=== PATIENT | male | born 1970 | race Caucasian/White ===

== ENCOUNTER → 2016-06-17 | Outpatient (CLI) | payer OTHER ==
--- NOTE | 2016-06-18 02:31 | REP ---
Clinical: Right-sided chest and rib pain. Technique: PA and lateral. Comparison: 05/02/2015. Findings: Mediastinum and cardiac silhouette are normal. Lung lopez demonstrate chronic interstitial changes. No acute consolidation, effusion, or pneumothorax. Osseous structures appear intact. Impression: Chronic interstitial changes. No obvious acute process. Signed by Chuy Victoria MD 06/18/2016 02:22 A
--- NOTE | 2016-06-18 02:34 | REP ---
Clinical: Right-sided rib pain. Technique: Multiple views of the right hemithorax. Findings: A very subtle nondisplaced fracture along the anterolateral margin of the right ninth rib cannot be excluded. No other fracture or pathology noted. Impression: Cannot exclude very slight nondisplaced fracture along the anterolateral margin of the right ninth rib. Signed by Chuy Victoria MD 06/18/2016 02:25 A
== END ==
LOC: M LRY 16:50
PROVIDERS: ATTEND Family Medicine
DX: R07.81 Pleurodynia (principal); J98.4 Other disorders of lung; R93.7 Abnormal findings on diagnostic imaging of other parts of musculoskeletal system

== ENCOUNTER → 2016-09-14 | Outpatient (CLI) | payer OTHER, SELFPAY ==
--- NOTE | 2016-09-14 18:02 | REP ---
PA CHEST WITH RIGHT RIBS: 09/14/2016. Clinical history: Injured right chest wall unilateral aspect of the ribs mid chest. Comparison 06/17/2016, PA chest and rib series. Findings: PA chest: Lungs are better inflated than the previous study. There is no effusion, infiltrate, atelectasis, lateral pleural thickening, apical scarring or pneumothorax. No consolidation or mass. The heart, mediastinal and hilar contours are normal. Airway intact. The aorta unremarkable. Right ribs: Four views are provided for detail of the right ribs. There is a right posterolateral zone of periosteal reaction suggesting healing rib fracture. I do not see displacement or the rib fracture line itself or other rib findings, areas of pleural thickening, pleural effusion or pneumothorax. Clavicle, scapula and shoulder joints grossly intact. Impression: 1. No visible acute displaced fracture with some healing and remodeling of a lateral right ninth rib. Lung lopez are well inflated and clear. No pneumothorax. Nothing acute. Signed by Rashad Chun MD 09/15/2016 05:11 P
== END ==
LOC: M LRY 16:41
PROVIDERS: ATTEND Nurse Practitioner Family
DX: R07.81 Pleurodynia (principal)

== ENCOUNTER → 2017-11-01 | Outpatient (REF) | payer OTHER | LOC: M SFHCLERA 16:22 | DX: E66.3 Overweight (principal); F32.9 Major depressive disorder, single episode, unspecified ==

== ENCOUNTER → 2018-01-12 | Outpatient (REF) | payer OTHER ==
[2018-01-12 17:00] LABS: ANION GAP 5 MEQ/L (8-16); BLOOD UREA NITROGEN 15 MG/DL (7-18); CARBON DIOXIDE LEVEL 28 MEQ/L (21-32); CHLORIDE LEVEL 103 MEQ/L (98-107); CHOLESTEROL LEVEL 227 MG/DL (<200); CHOLESTEROL RISK RATIO 6.878 (<5); GLOMERULAR FILTRATION RATE > 60.0 (>60); GLUCOSE, FASTING 128 MG/DL (70-100); HDL CHOLESTEROL 33 MG/DL (>40); NON-HDL-C 194 MG/DL; POTASSIUM SERUM 4.7 MEQ/L (3.5-5.1); SODIUM LEVEL 136 MEQ/L (136-145); TRIGLYCERIDES LEVEL 498 MG/DL (<150)
[2018-01-12 17:01] LABS: ESTIMATED AVERAGE GLUCOSE 126 MG/DL (60-110)
== END ==
LOC: M SFHCLERA 13:57
DX: E66.3 Overweight (principal); F32.9 Major depressive disorder, single episode, unspecified
CPT/HCPCS: 83036

== ENCOUNTER → 2018-01-14 | Outpatient (CLI) | payer OTHER | LOC: M LRY 11:46 | DX: M25.572 Pain in left ankle and joints of left foot (principal) | CPT/HCPCS: 73610 ==

== ENCOUNTER → 2018-09-22 | Outpatient (REF) | payer OTHER, SELFPAY ==
[2018-09-22 16:55] LABS: ALBUMIN 4.6 GM/DL (3.2-5.2); ALT/SGPT 40 U/L (12-78); BILIRUBIN,TOTAL 0.4 MG/DL (0.2-1.0); BLOOD UREA NITROGEN 15 MG/DL (7-18); CALCIUM LEVEL 10.1 MG/DL (8.5-10.1); CARBON DIOXIDE LEVEL 31 MEQ/L (21-32); CHLORIDE LEVEL 103 MEQ/L (98-107); CHOLESTEROL LEVEL 272 MG/DL (<200); CHOLESTEROL RISK RATIO 5.666 (<5); CREATININE FOR GFR 1.06 MG/DL (0.70-1.30); GLOMERULAR FILTRATION RATE > 60.0 (>60); GLUCOSE, FASTING 86 MG/DL (70-100); HDL CHOLESTEROL 48 MG/DL (>40); LDL CHOLESTEROL 182 MG/DL (<100); NON-HDL-C 224 MG/DL; POTASSIUM SERUM 4.9 MEQ/L (3.5-5.1); SODIUM LEVEL 139 MEQ/L (136-145); THYROID STIMULATING HORMONE 0.554 uIU/ML (0.358-3.740); TOTAL PROTEIN 8.3 GM/DL (6.4-8.2); TRIGLYCERIDES LEVEL 211 MG/DL (<150)
[2018-09-22 20:01] LABS: HEMOGLOBIN A1c 6.2 %
== END ==
LOC: M SFHCLERA 12:22
PROVIDERS: ATTEND Family Medicine
DX: E78.5 Hyperlipidemia, unspecified (principal); R73.02 Impaired glucose tolerance (oral); R03.0 Elevated blood-pressure reading, without diagnosis of hypertension

== ENCOUNTER → 2018-09-26 | Outpatient (CLI) | payer OTHER, SELFPAY ==
--- NOTE | 2018-09-27 06:20 | REP ---
Clinical: Inguinal pain. Hernia. Technique: Real time finley scale and color evaluation using linear high frequency transducer. Findings: Ultrasound examination of the left groin demonstrates normal subcutaneous tissues without evidence for hernia. Impression: No hernia or obvious abnormality by sonographic evaluation. Electronically Signed by Chuy Victoria MD 09/27/2018 06:11 A
--- NOTE | 2018-09-27 06:53 | REP ---
Clinical: Testicular pain. Technique: Real time finley scale and color Doppler evaluation using linear high frequency transducer. Findings: The bilateral testicles are normal in contour, size, echogenicity, and vascularity without torsion, infectious/inflammatory process, or mass lesion. Incidental 5.6 mm right epididymal cyst noted. No hydrocele. No varicocele. Right testicle measures 4.2 x 2.3 x 2.8 cm. Left testicle measures 3.8 x 2.1 x 3.1 cm. Impression: Essentially normal scrotal ultrasound. 5.6 mm right epididymal cyst. Electronically Signed by Chuy Victoria MD 09/27/2018 06:44 A
== END ==
LOC: M RAD 14:38
PROVIDERS: ATTEND Family Medicine
DX: N50.3 Cyst of epididymis (principal)

== ENCOUNTER 2018-12-23 06:05 | Day surgery (SDC) | payer OTHER ==
[~2018-12-23] VITALS: Ht 177.8 cm; Wt 91.7 kg
[~2018-12-23 06:05] MED LIST: ATOR1TAB21 PO; LR 1,000 ML IV ONE; PROAAER10 INH; PROZ20CA11 PO; RA M10TA PO; ceFAZolin SOD 1 GM in D5W MINI-BAG PLUS 50 ML IV ONE
[2018-12-23] MEDS ORDERED: BUPIVACAINE/EPIN 0.25% 30 ML VIAL As Ordered ONE (07:11)
[2018-12-23] MEDS ORDERED: LACRILUBE (AKWA TEARS) OPHTH OINT 3.5 GM As Ordered ONE (07:17)
[2018-12-23] MEDS ORDERED: ROCURONIUM BROMIDE 50 MG/5 ML VIAL As Ordered ONE (07:19)
[2018-12-23] MEDS ORDERED: LIDOCAINE 2% INJ 100 MG/5 ML SDV (FOR ANES.) As Ordered ONE (07:19)
[2018-12-23] MEDS ORDERED: PROPOFOL 200 MG/20 ML VIAL As Ordered ONE (07:19)
[2018-12-23] MEDS ORDERED: dexameTHASONE 4 MG/ML 1ML VIAL (J1100) As Ordered ONE (07:20)
[2018-12-23] MEDS ORDERED: MIDAZOLAM INJ 2 MG/2 ML VIAL (J2250) As Ordered ONE (07:20)
[2018-12-23] MEDS ORDERED: ONDANSETRON 4MG/2ML VIAL (J2405) As Ordered ONE (07:20)
[2018-12-23] MEDS ORDERED: fentaNYL 100 MCG/2 ML INJECTION (J3010) As Ordered ONE ×3 (07:20→09:16)
[2018-12-23] MEDS ORDERED: SUGAMMADEX SODIUM 500 MG/5 ML VIAL (BRIDION) As Ordered ONE (08:49)
--- NOTE | 2018-12-23 09:03 | RO ---
DATE OF PROCEDURE: 12/23/2018 PREOPERATIVE DIAGNOSIS: Left inguinal hernia. POSTOPERATIVE DIAGNOSIS: Left inguinal hernia. PROCEDURE: Robotic-assisted left inguinal hernia repair with ProGrip mesh. SURGEON: Dr. Sagar Brand SENIOR ADVISORY: Yolanda Kirshnamurthy (provided instrument exchange, trocar placement, abdominal wall closure and mesh placement). ANESTHESIA: General endotracheal anesthesia. ESTIMATED BLOOD LOSS: Minimal. FLUIDS: Crystalloid. BRIEF PROCEDURE SUMMARY: The patient was brought to the operating room and was given general anesthesia. After adequate anesthesia and preoperative antibiotics were given, the patient was prepped and draped in the usual sterile fashion. Next, a supraumbilical incision was made with skin knife. Blunt dissection was carried down to fascia. Fascia was entered with Veress needle and insufflated to 15 mm of pressure A dilating 8 mm trocar was placed at this time and under direct visualization two lateral 8 mm trocars were placed. The patient was placed in steep Trendelenburg position. Next, there was an obvious left inguinal hernia with omentum/sigmoid colon in the area of the opening which was adherent to the edges of the internal ring. Once the robot was docked, using sharp dissection the bowel was taken down off this internal ring as well as off the vessels. The patient had a small portion of omentum that was incarcerated within this hernia which was reduced by sharp dissection as well as electrocautery. Next, the peritoneum was taken down on the left inguinal area with monopolar cut scissors. Blunt dissection was used to mobilize this flap. Once this flap was created, seeing the vessels nicely, the Bobby's ligament and lateral border of the pubis as well as lateral to the vessels and the peritoneum was mobilized off the cord structures and the vessels nicely. There was a small lipoma of the cord that was adherent to the hernia sac which was also mobilized with this at that same time. Once this was adequately mobilized, the mesh was placed in the appropriate position, pressed into position, and then the peritoneum was closed over this with a running #3-0 V-Loc suture. The abdomen was desufflated under direct visualization after all trocars were removed and #4-0 Vicryl was used close all skin incisions. Steri-Strips and a dry sterile dressing was applied. The patient was awakened from his anesthesia, extubated and brought to the recovery room awake, alert and hemodynamically stable. Sponge and needle counts were correct times two.
[2018-12-23] MEDS: fentaNYL 100 MCG/2 ML INJECTION (J3010) IV PRN ×4 (09:17→09:32)
[2018-12-23] MEDS ORDERED: oxyCODONE 5MG TAB As Ordered ONE (09:20)
[2018-12-23] MEDS: oxyCODONE 5MG TAB PO PRN ×2 (09:22→09:52)
[2018-12-23] MEDS ORDERED: LR 1,000 ML IV SCH ×2 (09:30)
[2018-12-23] MEDS ORDERED: ONDANSETRON 4MG/2ML VIAL (J2405) IV PRN ×2 (09:30)
[2018-12-23] MEDS ORDERED: NORCO, ANEXSIA 5/325MG TABLET (HYDROcodone/ACETAMINOPHEN) PO PRN (09:30)
[2018-12-23 11:55] VITALS: BP 150/93
--- NOTE | 2018-12-26 21:15 | ECGEPIP ---
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
== END 2018-12-23 11:55 | disposition home or self-care (01) ==
LOC: M SDC 06:05
PROVIDERS: ATTEND Surgery
DX: K40.90 Unilateral inguinal hernia, without obstruction or gangrene, not specified as recurrent (principal); K21.9 Gastro-esophageal reflux disease without esophagitis; E78.5 Hyperlipidemia, unspecified; F41.9 Anxiety disorder, unspecified; F32.9 Major depressive disorder, single episode, unspecified; F12.10 Cannabis abuse, uncomplicated; Z87.891 Personal history of nicotine dependence; Z88.8 Allergy status to other drugs, medicaments and biological substances; Z79.899 Other long term (current) drug therapy
CPT/HCPCS: 49650; 93005; C1781; J0690; J1100; J2250; J2405; J3010

== ENCOUNTER → 2019-02-07 | Outpatient (REF) | payer OTHER ==
[~2019-02-07] MED LIST changes: -LR 1,000 ML IV ONE; -ceFAZolin SOD 1 GM in D5W MINI-BAG PLUS 50 ML IV ONE
[2019-02-07 12:04] LABS: CHOLESTEROL RISK RATIO 3.244 (<5)
== END ==
LOC: M SFHCLERA 08:56
PROVIDERS: ATTEND Family Medicine
DX: E78.5 Hyperlipidemia, unspecified (principal)

== ENCOUNTER → 2019-11-29 | Outpatient (CLI) | payer OTHER, SELFPAY ==
[~2019-11-29] MED LIST changes: +FLUO40CA
[2019-11-29 16:40] LABS: BASO % 0.6 % (0.0-1.0); EOS # 0.1 10^3/uL (0.0-0.5); EOS % 2.6 % (0.0-3.0); HEMATOCRIT 40.5 % (42.0-52.0); HEMOGLOBIN 13.4 g/dl (13.5-17.5); LYMPH # 1.2 10^3/uL (1.5-5.0); LYMPH % 23.8 % (24.0-44.0); MEAN CORPUSCULAR HEMOGLOBIN 30.7 pg (27.0-33.0); MEAN CORPUSCULAR HGB CONC 33.1 g/dl (32.0-36.5); MEAN CORPUSCULAR VOLUME 92.7 fl (80.0-96.0); MONO # 0.5 10^3/uL (0.0-0.8); NEUTROPHILS # 3.1 10^3/uL (1.5-8.5); NEUTROPHILS % 62.8 % (36.0-66.0); PLATELET COUNT, AUTOMATED 224 10^3/uL (150-450); RED BLOOD COUNT 4.37 10^6/uL (4.30-6.10); WHITE BLOOD COUNT 4.9 10^3/uL (4.0-10.0)
[2019-11-29 17:07] LABS: ALBUMIN 4.1 GM/DL (3.2-5.2); ALT/SGPT 35 U/L (12-78); BILIRUBIN,TOTAL 0.5 MG/DL (0.2-1.0); BLOOD UREA NITROGEN 15 MG/DL (7-18); CALCIUM LEVEL 9.4 MG/DL (8.5-10.1); CARBON DIOXIDE LEVEL 30 MEQ/L (21-32); CHLORIDE LEVEL 103 MEQ/L (98-107); CHOLESTEROL LEVEL 225 MG/DL (<200); CHOLESTEROL RISK RATIO 5.625 (<5); CREATININE FOR GFR 0.88 MG/DL (0.70-1.30); GLOMERULAR FILTRATION RATE > 60.0 (>60); GLUCOSE, FASTING 93 MG/DL (70-100); HDL CHOLESTEROL 40 MG/DL (>40); LDL CHOLESTEROL 145 MG/DL (<100); NON-HDL-C 185 MG/DL; POTASSIUM SERUM 4.3 MEQ/L (3.5-5.1); SODIUM LEVEL 137 MEQ/L (136-145); TOTAL PROTEIN 7.5 GM/DL (6.4-8.2); TRIGLYCERIDES LEVEL 198 MG/DL (<150)
== END ==
LOC: M WUC 12:52
PROVIDERS: ATTEND Family Medicine
DX: E78.2 Mixed hyperlipidemia (principal)

== ENCOUNTER → 2020-01-04 | Outpatient (CLI) | payer OTHER | LOC: M LABSMTC 11:03 | PROVIDERS: ATTEND Anesthesiology | DX: Z01.812 Encounter for preprocedural laboratory examination (principal); Z20.828 Contact with and (suspected) exposure to other viral communicable diseases ==

== ENCOUNTER 2020-01-09 10:53 | Day surgery (SDC) | payer OTHER, SELFPAY ==
[~2020-01-09] VITALS: Ht 170.2 cm; Wt 98.0 kg
[~2020-01-09 10:53] MED LIST changes: +LR 1,000 ML IV ONE; +ceFAZolin SOD 2 GM in IV 1 EA IV ONE
[2020-01-09 11:59] LABS: HEMATOCRIT 45.8 % (42.0-52.0); HEMOGLOBIN 14.9 g/dl (13.5-17.5); MEAN CORPUSCULAR HEMOGLOBIN 30.3 pg (27.0-33.0); MEAN CORPUSCULAR HGB CONC 32.5 g/dl (32.0-36.5); MEAN CORPUSCULAR VOLUME 93.1 fl (80.0-96.0); PLATELET COUNT, AUTOMATED 252 10^3/uL (150-450); RED BLOOD COUNT 4.92 10^6/uL (4.30-6.10); WHITE BLOOD COUNT 4.4 10^3/uL (4.0-10.0)
[2020-01-09 12:32] LABS: BLOOD UREA NITROGEN 17 MG/DL (7-18); CARBON DIOXIDE LEVEL 31 MEQ/L (21-32); CHLORIDE LEVEL 104 MEQ/L (98-107); CREATININE FOR GFR 1.11 MG/DL (0.70-1.30); GLOMERULAR FILTRATION RATE > 60.0 (>60); GLUCOSE, FASTING 105 MG/DL (70-100); POTASSIUM SERUM 4.6 MEQ/L (3.5-5.1); SODIUM LEVEL 137 MEQ/L (136-145)
[2020-01-09] MEDS ORDERED: LIDOCAINE 2% 100MG/5ML SDV (FOR ANES.) As Ordered ONE (13:55)
[2020-01-09] MEDS ORDERED: propofoL 200 MG/20 ML VIAL As Ordered ONE (13:55)
[2020-01-09] MEDS ORDERED: METOCLOPRAMIDE INJ 10MG/2ML VIAL (J2765 PER 1) As Ordered ONE (13:55)
[2020-01-09] MEDS ORDERED: ONDANSETRON 4MG/2ML VIAL As Ordered ONE (13:55)
[2020-01-09] MEDS ORDERED: ROCURONIUM BROMIDE 50 MG/5 ML VIAL As Ordered ONE (13:55)
[2020-01-09] MEDS ORDERED: fentaNYL 100 MCG/2 ML INJECTION (J3010) As Ordered ONE (13:56)
[2020-01-09] MEDS ORDERED: MIDAZOLAM INJ 2MG/2ML VIAL (J2250 PER 1MG) As Ordered ONE (13:56)
[2020-01-09] MEDS ORDERED: BUPIVACAINE HCL 0.25% 10ML VIAL As Ordered ONE (13:57)
[2020-01-09] MEDS ORDERED: BUPIVACAINE LIPOSOME/PF 1.3% 20ML VIAL (13.3MG/ML)(EXPAREL)(C9290 PER1MG) As Ordered ONE (13:57)
[2020-01-09] MEDS ORDERED: LR 1,000 ML IV SCH (15:15)
[2020-01-09] MEDS ORDERED: NS 1,000 ML IV SCH (15:15)
[2020-01-09] MEDS ORDERED: HYDROMORPHONE HCL 0.5 MG/ 0.5 ML SYRINGE (J1170 PER 1) IV PRN (15:15)
[2020-01-09] MEDS ORDERED: NORCO, ANEXSIA 5/325MG TABLET (HYDROcodone/ACETAMINOPHEN) PO PRN (15:15)
[2020-01-09] MEDS ORDERED: ONDANSETRON 4MG/2ML VIAL IV PRN (15:15)
[2020-01-09] MEDS ORDERED: oxyCODONE 5MG TAB PO PRN (15:15)
[2020-01-09] MEDS ORDERED: fentaNYL 100 MCG/2 ML INJECTION (J3010) IV PRN (15:15)
[2020-01-09 15:30] VITALS: BP 154/86
== END 2020-01-09 16:05 | disposition home or self-care (01) ==
LOC: M SDC 10:53
PROVIDERS: ATTEND Surgery
DX: K42.9 Umbilical hernia without obstruction or gangrene (principal); E78.00 Pure hypercholesterolemia, unspecified; F12.90 Cannabis use, unspecified, uncomplicated; F32.9 Major depressive disorder, single episode, unspecified; F41.9 Anxiety disorder, unspecified; K21.9 Gastro-esophageal reflux disease without esophagitis; Z79.899 Other long term (current) drug therapy; Z88.6 Allergy status to analgesic agent; Z87.891 Personal history of nicotine dependence
CPT/HCPCS: 36415; 49585; 80048; 85027; 88302; C9290; J0690; J2250; J2405; J2765; J3010

== ENCOUNTER → 2020-09-20 | Outpatient (CLI) | payer OTHER ==
[~2020-09-20] MED LIST changes: -LR 1,000 ML IV ONE; -ceFAZolin SOD 2 GM in IV 1 EA IV ONE
--- NOTE | 2020-09-20 14:24 | REP ---
INDICATION: CERVICALGIA. COMPARISON: None. TECHNIQUE: Seven views FINDINGS: Seven views of the cervical spine show no acute fracture, dislocation or subluxation. The intervertebral disc spaces are symmetric and well maintained. The facet joints are well aligned bilaterally. The intervertebral foramina are patent bilaterally and the neural canal is not encroached upon. There is no destructive osseous lesion. Flexion and extension does not appear to be particularly limited radiographically. The anterior spinal soft tissues appear unremarkable. No swimmer's view was obtained. Secondary to this the C7-T1 level cannot be assessed. IMPRESSION: Unremarkable cervical spine series. Since the C7-T1 level cannot be assessed the patient should be recalled and a swimmer's view should be obtained. Although this plain radiographic evaluation of the cervical spine shows no evidence of a fracture, it should be remembered that CT is much more sensitive than plain radiography of the C-spine in detecting fractures. If this examination was ordered to rule out a fracture then CT of the cervical spine is recommended. <Electronically signed by Yariel Samayoa > 09/20/20 [id number]
== END ==
LOC: M WUC 13:43
PROVIDERS: ATTEND Nurse Practitioner Family
DX: M54.2 Cervicalgia (principal)

== ENCOUNTER → 2023-07-02 | Outpatient (CLI) | payer OTHER ==
[~2023-07-02] MED LIST changes: +FLUO40CA PO; +THERTAB52 PO; +VITA100093 PO
== END ==
LOC: M PLAIMG 12:39
PROVIDERS: ATTEND Otolaryngology
DX: J34.2 Deviated nasal septum (principal); J32.8 Other chronic sinusitis

== ENCOUNTER 2023-07-05 08:24 | Day surgery (SDC) | payer OTHER ==
[~2023-07-05] VITALS: Ht 180.3 cm; Wt 95.3 kg
[2023-07-05] MEDS ORDERED: LR 1,000 ML IV SCH ×2 (08:30→12:40)
[2023-07-05] MEDS ORDERED: ONDANSETRON 4MG 2ML VIAL As Ordered ONE (09:30)
[2023-07-05] MEDS ORDERED: MIDAZOLAM INJ 2MG/2ML VIAL As Ordered ONE (09:30)
[2023-07-05] MEDS ORDERED: fentaNYL 250 MCG/5 ML INJECTION As Ordered ONE (09:30)
[2023-07-05] MEDS ORDERED: propofoL 200 MG/20 ML VIAL As Ordered ONE (09:30)
[2023-07-05] MEDS ORDERED: LIDOCAINE 2% 100MG/5ML SDV (FOR ANES.) As Ordered ONE (09:30)
[2023-07-05] MEDS ORDERED: ROCURONIUM BROMIDE 50MG/5ML VIAL As Ordered ONE (09:30)
[2023-07-05] MEDS ORDERED: LACRILUBE (AKWA TEARS) OPHTH OINT 3.5GM As Ordered ONE (10:03)
[2023-07-05] MEDS ORDERED: SUGAMMADEX SODIUM 500 MG/5 ML VIAL (BRIDION) As Ordered ONE (10:03)
[2023-07-05] MEDS ORDERED: ACETAMINOPHEN 1000MG 100ML IV BAG As Ordered ONE (10:03)
[2023-07-05] MEDS ORDERED: PHENYLephrine 500MCG 5ML (100MCG/ML) SYRINGE As Ordered ONE (10:42)
[2023-07-05] MEDS ORDERED: ePHEDrine SULFATE 25 MG/5 ML(5MG/ML) SYRINGE As Ordered ONE (10:42)
[2023-07-05] MEDS: COCAINE 4% 4ML NASAL SOLUTION BTL As Ordered ONE (10:46)
[2023-07-05] MEDS: OXYMETAZOLINE 0.05% NASAL SPRAY (AFRIN) As Ordered ONE (12:00)
[2023-07-05] MEDS: LIDOCAINE W/EPINEPHRINE 1% 20ML VIAL As Ordered ONE (12:00)
[2023-07-05] MEDS ORDERED: fentaNYL 100 MCG/2 ML INJECTION IV PRN (12:20)
[2023-07-05] MEDS ORDERED: ONDANSETRON 4MG 2ML VIAL IV PRN (12:20)
[2023-07-05] MEDS: HYDROMORPHONE HCL 0.5 MG/ 0.5 ML SYRINGE IV PRN (12:37)
[2023-07-05] MEDS: oxyCODONE 5MG TAB PO PRN (12:37)
[2023-07-05] MEDS ORDERED: ANEXSIA, NORCO 7.5MG/325MG TABLET(HYDROCODONE/APAP) PO PRN (12:45)
[2023-07-05] MEDS: LR 1,000 ML IV SCH (12:49)
[2023-07-05 13:20] VITALS: BP 152/80; TEMP 98; O2SAT 95
== END 2023-07-05 13:45 | disposition home or self-care (01) ==
LOC: M SDC 08:24
PROVIDERS: ATTEND Otolaryngology
DX: J32.8 Other chronic sinusitis (principal); J34.2 Deviated nasal septum; J34.3 Hypertrophy of nasal turbinates; R06.83 Snoring; F32.A Depression, unspecified; Z88.6 Allergy status to analgesic agent; Z79.899 Other long term (current) drug therapy
CPT/HCPCS: 30140; 30520; 31253; 31259; 31267; 61782; 88305; C9143; J0131; J1100; J1170; J2250; J2371; J2405; J3010

== ENCOUNTER → 2023-09-08 | Outpatient (CLI) | payer OTHER | LOC: M SOG 07:54 | PROVIDERS: ATTEND Orthopaedic Surgery | DX: M25.561 Pain in right knee (principal) ==